=== PATIENT | female | born 1985 | race Caucasian/White ===

== ENCOUNTER 2021-02-22 23:11 | Emergency (ER) | payer SELFPAY ==
[2021-02-22 23:15] VITALS: BP 145/93; PULSE 63; RESP 18; TEMP 36.4; O2SAT 100
--- NOTE | 2021-02-23 00:39 | PC.NURSE ---
pt decides to leave stating she will try to get into another hospital. encouraged to return if symptoms worsen. pt was triaged
== END 2021-02-23 01:01 | disposition left against medical advice (07) ==
LOC: ANHED 02-23 00:43
DX: R10.9 Unspecified abdominal pain (principal)
CPT/HCPCS: 99199

== ENCOUNTER 2021-10-25 08:13 | Outpatient (CLI) | payer OTHER, SELFPAY ==
--- NOTE | ~2021-10-25 | US_ITS ---
EXAMINATION: US right upper quadrant DATE: 10/25/2021 08:57 INDICATION: Right upper quadrant pain TECHNIQUE: Multiple grayscale and Doppler ultrasound images of the abdomen were obtained. COMPARISON: None available FINDINGS: The head, body, and tail of the pancreas are normal. The liver is normal with normal echoge nicity and echotexture. No surface nodularity. Normal hepatopetal flow in the main portal vein. There are innumerable stones in the gallbladder. No definite gallbladder wall thickening or pericholecysti c fluid are identified. The normal common bile duct measures 3 mm. There was no sonographic Mullen si gn. IMPRESSION: 1. Cholelithiasis without additional findings of cholecystitis. Reviewed, dictated and finalized at location B.
== END 2021-10-25 08:14 | disposition home or self-care (01) ==
PROVIDERS: PCP Nurse Practitioner; Visit Provider Clinical Nurse Specialist
DX: R10.11 Right upper quadrant pain (principal); K80.20 Calculus of gallbladder without cholecystitis without obstruction
CPT/HCPCS: 76705

== ENCOUNTER 2021-11-24 06:43 | Outpatient (CLI) | payer OTHER, SELFPAY ==
--- NOTE | ~2021-11-24 | MR_ITS ---
EXAMINATION: MR MRCP wo/w con/w 3D wo ind DATE: 11/24/2021 08:05 INDICATION: Cholelithiasis. Family history of choledochal cyst. TECHNIQUE: Magnetic resonance imaging (MRI) of the abdomen was performed without and with 15 mL Multi Margo intravenous contrast. Sequences included coronal T2-weighted FS FSE, coronal T2-weighted FSE, a xial T1-weighted LAVA, coronal FS FIESTA, axial dual-echo T1-weighted SPGR, coronal lava-FLEX, sagitt al T2-weighted FSE, axial T2-weighted FSE, and axial DWI. Thick-slab T2-weighted FSE images were obta ined for magnetic resonance cholangiopancreatography (MRCP). Maximum intensity projection 3-D reconst ructions of the volumetric data were created by the technologist. Postcontrast sequences included cor onal LAVA-flex and time course of axial T1-weighted LAVA. COMPARISON: Abdomen ultrasound 10/25/2021 FINDINGS: ABDOMEN MRI: There is an 8 mm arterially hyperenhancing mass in right hepatic lobe without washout th at is isointense to normal liver on other sequences. There are gallstones in the gallbladder, which i s normal in size. The spleen, pancreas, adrenal glands, and kidneys are normal. There are no dilated loops of bowel. ABDOMEN MRCP: The common duct is normal and measures 2 mm. IMPRESSION: 1. Cholelithiasis. 2. No choledocholithiasis. 3. 8 mm hyperenhancing liver mass. In the absence of known malignancy or chronic liver disease, this finding is likely a hemangioma or focal nodular hyperplasia. Reviewed, dictated and finalized at location D. IMPRESSION: 1. Cholelithiasis. 2. No choledocholithiasis. 3. 8 mm hyperenhancing liver mass. In the absence of known malignancy or chroni c liver disease, this finding is likely a hemangioma or focal nodular hyperplas ia.
== END 2021-11-24 06:44 | disposition home or self-care (01) ==
PROVIDERS: PCP Nurse Practitioner; Visit Provider Surgery
DX: K80.10 Calculus of gallbladder with chronic cholecystitis without obstruction (principal)
CPT/HCPCS: 74183; 76376; A9577

== ENCOUNTER 2021-11-24 08:16 | Outpatient (CLI) | payer OTHER, SELFPAY ==
[2021-11-24 09:37] LABS: Alanine Aminotransferase 17 U/L (6-35); Albumin Level 4.5 g/dL (3.5-5.1); Alkaline Phosphatase 45 U/L (38-126); Amylase 82 U/L (30-110); Aspartate Amino Transferase 26 U/L (14-36); Bilirubin,Total 0.4 mg/dL (0.2-1.3); Lipase 73 U/L (23-300)
== END 2021-11-24 08:17 | disposition home or self-care (01) ==
LOC: ANHSURGERY 08:19
PROVIDERS: PCP Nurse Practitioner; Visit Provider Surgery
DX: K80.10 Calculus of gallbladder with chronic cholecystitis without obstruction (principal); Z01.818 Encounter for other preprocedural examination
CPT/HCPCS: 36415; 80076; 82150; 83690

== ENCOUNTER 2021-11-27 02:35 | Day surgery (SDC) | payer OTHER, SELFPAY ==
[2021-11-20 11:07] VITALS: BMI 30.7
--- NOTE | 2021-11-20 11:24 | PC.NURSE ---
Report to the Outpatient Waiting Room, entrance under the green pavilion located off [facility], at time 8:00 on date 11/27/21. OR Time: 10:00. Time changes happen often and if your time is changed the preop area will call you the afternoon before. - You and your visitor will be asked to self-screen and do not enter if you have any COVID symptoms. - Only one visitor and NO children visitors are allowed at this time. - The patient visitor is requested to leave or wait in car when not with patient due to restrictions. - A mask is required within the hospital. Patients may have clear liquids (water, carbonated beverages, clear teas, apple juice) until 3 hours prior to surgery (7:00) with a maximum of 20 ounces. - No food from midnight until time of surgery Take the following medications with a SIP of water the morning of surgery: HYDROXYZINE IF NEEDED Medications to discontinue per physician: VITAMINS Date to take last dose: 11/23/[address] MACEDO'S INSTRUCTIONS Please no make-up, nail pashto, hairspray, perfume, deodorant, or body powder the day of surgery. No jewelry (including any body piercings) or valuables the day of surgery, leave them at home. Please take a shower or bath the night before, or the morning of, surgery with an antibacterial soap (HIBICLENS). Wear comfortable, loose fitting clothing. - Jewelry must be removed prior to entering the operating room. Rings and piercings that are not removed may be cut off. - The hospital will not accept responsibility for valuables. - Please leave all valuables, including medications, at home the day of surgery. If you are going home after surgery, a licensed driver retraining instructor must drive you home. - NO public transportation without another adult. - We recommend that an adult stay with you for 24 hours following discharge. - We also recommend that you do not drive, make important decision, drink alcoholic beverages, or take any drugs that were not prescribed by your health care provider for at least 24 hours after your discharge time. Follow any additional instructions given to you from your surgeon. If you or anyone in your household have experienced Covid symptoms in the past week, please notify your surgeon or the nurse liaison at the phone number below for possible testing. Telephone instructions given to PT - VANDA WILSON and asked if any additional questions and then verbalized understanding. Patient advised to call surgeon office or pre surgery nurse liaison [phone] if any additional questions.
[2021-11-27] VITALS (10 sets, daily range): BP systolic 103–113; BP diastolic 55–70; PULSE 53–74; RESP 12–20; TEMP 36.3–36.7; O2SAT 98–100
[2021-11-27] MEDS: LACTATED RINGERS 1,000 ML 30 ML IV CONT ×2 (09:00→11:55)
[2021-11-27] MEDS: KETOROLAC 15 MG/ML VIAL (*BKC) IV PUSH (09:01)
[2021-11-27] MEDS: ACETAMINOPHEN 500 MG TABLET 1000 MG PO (09:01)
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
[2021-11-27] MEDS: SCOPOLAMINE 1.5 MG PATCH TRANSDERM (09:30)
--- NOTE | 2021-11-27 10:00 | P.HPUP_ITS ---
History and Physical Update Update Date/Time: 11/27/21 10:00 History and Physical has been reviewed, including an updated exam of the patient. There are changes in the patient's condition. The pt. has had an outpatient MRCP that showed fairly normal biliary duct anatomy and confirmed cho lelithiasis. Risks, benefits, and alternatives have been discussed and questions answered. Patient agrees to proceed with procedure.
[2021-11-27] MEDS: ceFAZolin 2 GM/D5W 50 ML 2 GM/50 ML BAG IVPB (10:10)
[2021-11-27] MEDS: BUPIVACAINE/EPINEPHRINE 0.25% 50 ML VIAL INFILTRATE (11:34)
--- NOTE | 2021-11-27 12:09 | W.PM.PROC2 ---
Procedure Note - Detailed Date of Procedure 11/27/21 Pre-op Diagnosis chronic cholecystitis with cholelithiasis Post-op Diagnosis Other (1. Same as preop plus 2. 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 Findings A long thin gallbladder with multiple adhesions on its under surface. There was also at least 1 large stone(approx. 1.4 cm) at the neck. Description of Procedure Patient was seen preoperatively in the holding area and risks, benefits and alternatives confirmed. Patient was taken to the operating room and general anesthesia was induced. A time out was then preformed with the surgery team confirming patient and site of surgery. The abdomen was prepped and draped in the usual sterile fashion. Incision was made just below the umbilicus with an 11 blade knife. I placed 2 stay sutures of O- Vicryl on either side of the mid-line fascia beneath the umbilicus and was then able to slide in the Huang cannula through the fascial defect into the peritoneum. First under low flow and then under high flow the abdomen was insufflated with carbon dioxide never exceeding a pressure of 14. Three 5 mm trocars were then introduced under direct vision. The following trocars were introduced under direct vision: a 5 mm in the epigastrium and two 5 mm trocars along the right costal margin laterally in the subcostal area. There were significant omental adhesions to the underside of the gallbladder. These were taken down with blunt and sharp dissection using some Bovie cautery for hemostasis. We were able to dissect this completely away from the neck of the gallbladder. I then carefully used the L-shaped cautery and the [place] dissector to dissect out the triangle of Calot. I then was able to dissect out both the cystic duct and cystic artery and identify a window of safety. The gall bladder was grasped and the cystic duct and artery were dissected free and clipped with an 5 mm endo-clip dancing master. The cystic duct and artery were clipped with use of 2 clips on the patient's side 1 on the gallbladder side utilizing a 5 mm endoclip-dancing master. The cystic duct was then transected. The cystic artery was also transected at this point. The gall bladder was removed using electrocautery and then removed from the abdomen using an endobag. The trocars were removed visualizing hemostasis and the remaining gas evacuated. The large trocar site at the umbilicus was closed with use of the 2 stay sutures of 0 Vicryl mentioned above and also a figure of 8 O-Vicryl suture. The 2 stay sutures mentioned above on either side of the fascia were also tied together to help approximate this midline fascia. Further local anesthetic was placed into each incision for postop pain control. The skin incisions were closed with subcuticular suture of 4-0 Monocryl. Surgical glue then was applied to all the incisions. Patient tolerated the procedure well was taken to the recovery room in good condition. Implants none Estimated Blood Loss -25.0 Drains No Packing No Pathology Yes (Gallbladder) Complications No immediate complications Condition Stable Disposition PACU [facility] Billing Surgery - Charge Forward: Surgery Billing (1. Laparoscopic cholecystectomy 2.Removal of 1 cm size lipoma at umbilical incision site)
[2021-11-27] MEDS: ONDANSETRON INJ 4 MG/2 ML VIAL IV PUSH (12:49)
[2021-11-27] MEDS: oxyCODONE HCL (*CRX) 5 MG TAB IR PO (13:28)
== END 2021-11-27 14:20 | disposition home or self-care (01) ==
PROVIDERS: PCP Nurse Practitioner; Visit Provider Surgery
PROC: 0FT44ZZ Resection of Gallbladder, Percutaneous Endoscopic Approach (ICD-10-PCS; CPT 47562; principal; 2021-11-27 10:00)
DX: K80.10 Calculus of gallbladder with chronic cholecystitis without obstruction (principal); D17.1 Benign lipomatous neoplasm of skin and subcutaneous tissue of trunk; F32.A Depression, unspecified; F17.210 Nicotine dependence, cigarettes, uncomplicated; F12.90 Cannabis use, unspecified, uncomplicated; E66.9 Obesity, unspecified; Z68.31 Body mass index [BMI] 31.0-31.9, adult
CPT/HCPCS: 47562; 88304; A9270; J0690; J1100; J1170; J1885; J2250; J2405; J2704; J2710; J3010; J7120

== ENCOUNTER 2024-03-27 09:16 | Emergency (ER) | payer OTHER, SELFPAY ==
[2024-03-27 09:34] VITALS: BP 123/82; PULSE 90; RESP 16; TEMP 36.1; O2SAT 100
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
[2024-03-27 10:09] LABS: EDCOVIDSCREEN Negative (Negative); EDINFLUASCREEN Negative (Negative); EDINFLUBSCREEN Negative (Negative); EDSTREPNEGPOS1 Negative (Negative)
== END 2024-03-27 10:21 | disposition home or self-care (01) ==
PROVIDERS: Emergency Provider Nurse Practitioner Family
DX: J06.9 Acute upper respiratory infection, unspecified (principal); Z20.822 Contact with and (suspected) exposure to COVID-19; F17.210 Nicotine dependence, cigarettes, uncomplicated; F32.A Depression, unspecified
CPT/HCPCS: 87081; 87426; 87804; 87880; 99213; G0463

== ENCOUNTER 2025-01-11 09:22 | Emergency (ER) | payer OTHER, SELFPAY ==
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
[2025-01-11 09:35] VITALS: BP 116/84; PULSE 96; RESP 16; TEMP 36.7; O2SAT 100
[2025-01-11 11:52] LABS: EDSTREPNEGPOS1 Negative (Negative)
== END 2025-01-11 10:02 | disposition home or self-care (01) ==
PROVIDERS: Emergency Provider Nurse Practitioner Family
DX: J03.80 Acute tonsillitis due to other specified organisms (principal); B96.89 Other specified bacterial agents as the cause of diseases classified elsewhere; F17.210 Nicotine dependence, cigarettes, uncomplicated
CPT/HCPCS: 87081; 87880; 99213; G0463